=== PATIENT | female | born 1990 | race Caucasian/White ===

== ENCOUNTER 2016-10-31 06:50 | Emergency (ER) | payer OTHER ==
[2016-10-31] MEDS ORDERED: MOBIC7.5 M2 PO (07:01)
[2016-10-31] MEDS ORDERED: COLACE100 M1 PO (07:02)
[2016-10-31 07:04] LABS: BASO % 0.3 % (0-2); EOS % 6.5 % (0-7); EOSINOPHIL ABSOLUTE COUNT 0.5 tho/cmm (0.0-0.7); HCT-HEMATOCRIT 38.6 % (34.0-49.0); HGB-HEMOGLOBIN 13.1 gm/dl (12.0-15.5); IMMATURE GRANULOCYTES ABSOLUTE 0.01 tho/cmm (0-0.03); IMMATURE GRANULOCYTES PERCENT 0.1 % (0-0.3); LYMPH % 22.4 % (20-45); LYMPH ABSOLUTE COUNT 1.7 tho/cmm (0.8-4.5); MCH (MEAN CORPUSCULAR HGB) 29.5 pg (28.0-32.0); MCHC MEAN CORPUSCULAR HGB CONC 33.9 % (32.0-36.0); MCV (MEAN CELL VOLUME) 86.9 fl (82.0-96.0); MEAN PLATELET VOLUME 10.4 cmc (9.4-12.4); MONO % 6.9 % (0-12); MONOCYTE ABSOLUTE COUNT 0.5 tho/cmm (0.0-1.2); NEUTROPHIL ABSOLUTE COUNT 4.7 tho/cmm (1.6-8.0); NEUTROPHIL-AUTOMATED 4.7 tho/cmm (1.6-8.0); NEUTROPHILS % 63.8 % (40-80); PLATELET COUNT 216 tho/cmm (150-450); RED BLOOD COUNT 4.44 mil/cmm (4.00-5.20); RED CELL DISTRIBUTION WIDTH 12.8 % (12.4-16.4); WHITE BLOOD COUNT 7.4 tho/cmm (4.0-10.0)
[2016-10-31 07:16] LABS: ANION GAP 12 mmol/L (0-20); BLOOD UREA NITROGEN 18 mg/dl (6-24); CALCIUM 8.9 mg/dl (8.5-10.5); CARBON DIOXIDE-VENOUS 29 mmol/L (22-32); CHLORIDE 103 mmol/l (96-110); CREATININE 0.63 mg/dl (0.50-1.10); GLUCOSE 119 mg/dL (70-110); POTASSIUM 3.6 mmol/L (3.7-5.1); PREGNANCY-SERUM NEGATIVE (NEGATIVE); SODIUM 140 mmol/L (135-145); eGFR VALUE FOR BLACK >90 mL/Min
[2016-10-31 07:37] LABS: URINE BILIRUBIN NEGATIVE (NEG); URINE BLOOD NEGATIVE (NEG); URINE GLUCOSE (UA) NEGATIVE (NEG); URINE KETONE NEGATIVE (NEG); URINE LEUKOCYTE ESTERASE POSITIVE (NEG); URINE NITRITE NEGATIVE (NEG); URINE PROTEIN NEGATIVE (NEG)
[2016-10-31 07:38] LABS: URINE APPEARANCE CLEAR; URINE COLOR YELLOW
[2016-10-31 07:46] LABS: URINE RBC 0 /[HPF] (0-5)
[2016-10-31 07:47] LABS: URINE AMORPHOUS 1+; URINE MUCUS 1+
[2016-10-31] MEDS ORDERED: ZOFRAN ODT4 MG PO (08:45)
== END 2016-10-31 09:17 ==
LOC: EDMED 06:50
PROVIDERS: Emergency Medicine
DX: E87.6 Hypokalemia (principal); R11.2 Nausea with vomiting, unspecified; R55 Syncope and collapse; Z88.2 Allergy status to sulfonamides
CPT/HCPCS: J2405